=== PATIENT | female | born 1995 | race Two or more races ===

== ENCOUNTER → 2025-03-12 | Outpatient (CLI) | payer MEDICAID, SELFPAY ==
--- NOTE | 2025-03-12 10:45 | XR_ITS ---
Examination: Abdomen sonogram, complete Date and time of exam: March 12, 2025, 1001 hours INDICATIONS: Elevated liver function tests on laboratory examination 2 months ago.. Technique: Multiple real-time grayscale transabdominal sonographic images of the abdomen have been obtained. Findings: Absent gallbladder Normal common bile duct 0.4 cm Pancreatic head 2.5 cm Aorta not enlarged Liver 18.2 cm fatty infiltration irregular contour Normal hepatopetal portal venous flow Patent IVC Right kidney 10.7 cm renal cortex 1.5 cm Left kidney 10.0 cm renal cortex 1.4 cm Mild renal parenchymal scar formation Spleen 10.8 cm IMPRESSION: Normal common bile duct Moderate hepatomegaly primary hepatocellular disease
== END | disposition home or self-care (01) ==
LOC: CDIM 09:30
PROVIDERS: PCP Physician Assistant; Referring Provider Physician Assistant; Visit Provider Physician Assistant
DX: R16.0 Hepatomegaly, not elsewhere classified (principal)
CPT/HCPCS: 76700